=== PATIENT | female | born 1970 | race Caucasian/White ===

== ENCOUNTER 2021-03-19 23:39 | Emergency (ER) | payer BC ==
[~2021-03-19] VITALS: Ht 170.2 cm; Wt 78.0 kg
[2021-03-20 00:30] VITALS: BP 110/55
== END 2021-03-20 00:30 | disposition home or self-care (01) | DRG 605 ==
LOC: ED 23:39
DX: S90.01XA Contusion of right ankle, initial encounter (principal); W22.03XA Walked into furniture, initial encounter; Y92.009 Unspecified place in unspecified non-institutional (private) residence as the place of occurrence of the external cause